=== PATIENT | female | born 1995 | race American Indian/Alaskan Native ===

== ENCOUNTER 2020-09-18 11:22 | Emergency (ER) | payer SELFPAY ==
--- NOTE | 2020-09-18 14:43 | Emergency Department Report ---
ED General Adult HPI - General Chief complaint: Skin/Abscess/Foreign Body Stated complaint: ABCESS Time Seen by Provider: 09/18/20 13:10 Source: patient Mode of arrival: Ambulatory Limitations: No Limitations - History of Present Illness Initial comments: 25-year-old -[place] female patient without past medical history presents with complaints of nodules in her pelvic region x 2 days. She states the nodules are mildly tender to touch and denies any redness, swelling, drainage, fever/chills/sweats, dysuria/hematuria/urinary frequency, or vaginal discharge/dyspareunia. She rates her pain as a 2/10 in severity and describes it as a ache. She does report some vaginal itching and states she applied cornstarch to her vaginal area today via recommendation of her grandmother. She denies any rash. Patient states she is sexually active and has had history of an STI - Related Data Previous Rx's Medication Instructions Recorded Last Taken Type Fluconazole (Nf) [Diflucan TAB] 150 mg PO ONCE 1 Days #1 tablet 09/18/20 Unknown Rx Allergies Allergy/AdvReac Type Severity Reaction Status Date / Time No Known Allergies Allergy Verified 09/18/20 11:23 ED Review of Systems ROS: Stated complaint: ABCESS Other details as noted in HPI Constitutional: denies: chills, diaphoresis, fever, malaise Respiratory: denies: cough, shortness of breath Gastrointestinal: denies: abdominal pain, nausea, vomiting Genitourinary: denies: urgency, dysuria, frequency, hematuria, discharge, abnormal menses, dyspareunia Skin: pruritus. denies: rash, change in color Neurological: denies: headache Hematological/Lymphatic: swollen glands ED Past Medical Hx - Past Medical History Previous Medical History?: No - Surgical History Past Surgical History?: No - Social History Smoking Status: Never Smoker Substance Use Type: None - Medications Home Medications: Home Medications Medication Instructions Recorded Confirmed Last Taken Type Fluconazole (Nf) [Diflucan TAB] 150 mg PO ONCE 1 Days #1 tablet 09/18/20 Unknown Rx ED Physical Exam - General Limitations: No Limitations General appearance: alert, in no apparent distress - Head Head exam: Present: atraumatic, normocephalic - Eye Eye exam: Present: normal appearance. Absent: scleral icterus - Respiratory Respiratory exam: Present: normal lung sounds bilaterally. Absent: respiratory distress - Cardiovascular Cardiovascular Exam: Present: regular rate, normal rhythm - External exam: Present: other (Tenderness to labia minora noted with speculum insertion; mildly tender and swollen lymph node noted to left and right groin). Absent: erythema, swelling, lesions, lacerations Speculum exam: Present: vaginal bleeding (Mild). Absent: erythema, vaginal discharge, cervical discharge Bi-manual exam: Absent: cervical motion tendernes, adnexal tenderness - Neurological Exam Neurological exam: Present: alert, oriented X3 - Psychiatric Psychiatric exam: Present: normal affect, normal mood - Skin Skin exam: Present: warm, dry, intact, rash. Absent: cyanosis, diaphoretic ED Course Vital Signs 09/18/20 11:26 Temperature 98.0 F Pulse Rate 71 Respiratory 16 Rate Blood Pressure 105/64 O2 Sat by Pulse 97 Oximetry ED Medical Decision Making - Medical Decision Making 25-year-old -[place] female patient without past medical history presents with complaints of nodules in her pelvic region x 2 days. She states the nodules are mildly tender to touch and denies any redness, swelling, drainage, fever/chills/sweats, dysuria/hematuria/urinary frequency, or vaginal discharge/dyspareunia. She rates her pain as a 2/10 in severity and describes it as a ache. She does report some vaginal itching and states she applied cornstarch to her vaginal area today via recommendation of her grandmother. She denies any rash. Patient states she is sexually active and has had history of an STI No abdominal tenderness or cervical motion tenderness noted on exam. No vaginal discharge noted. Mildly swollen tender inguinal lymph nodes noted bilaterally. Patient also has irritation of the labia minora along with some tenderness in the area. Will treat for yeast vaginitis with Diflucan. Her vitals are normal, she is well-appearing, she is stable for discharge home with follow-up with PCP. Discussed monitoring of lymphadenopathy and signs and symptoms that should prompt immediate return to the emergency department in detail with patient who verbalized understanding. Critical care attestation.: If time is entered above; I have spent that time in minutes in the direct care of this critically ill patient, excluding procedure time. ED Disposition Clinical Impression: Acute inguinal lymphadenitis, Yeast vaginitis Disposition: TO HOME OR SELFCARE Is pt being admited?: No Condition: Stable Instructions: Vulvovaginal Candidiasis (ED) Prescriptions: Fluconazole (Nf) [Diflucan TAB] 150 mg PO ONCE 1 Days #1 tablet Referrals: PRIMARY CARE,MD [Primary Care Provider] - 3-5 Days
[2020-09-18 14:45] VITALS: BP 105/64
[2020-09-18 16:04] LABS: Amorphous Crystals,Urine Few; Bacteria,Urine 1+ /HPF (Negative); Bilirubin,Urine NEG (Negative); Blood,Urine SM (Negative); Color,Urine Yellow (Yellow); Protein,Urine <15 mg/dL mg/dL (Negative)
[2020-09-18 16:10] LABS: HCG Qualitative,Urine Negative (Negative)
[2020-09-18] MEDS ORDERED: IBUPROFEN 800 MG TAB PO ONE (16:14)
== END 2020-09-18 16:21 | disposition home or self-care (01) ==
LOC: ED 11:22
DX: L04.8 Acute lymphadenitis of other sites (principal); B37.3 Candidiasis of vulva and vagina; Z79.899 Other long term (current) drug therapy
CPT/HCPCS: 81001; 81025; 87210; 87591

== ENCOUNTER 2020-09-22 20:07 | Emergency (ER) | payer SELFPAY ==
[2020-09-22 20:59] VITALS: BP 97/65
[2020-09-22 21:45] LABS: HCG Qualitative,Urine Negative (Negative)
[2020-09-22 21:46] LABS: Bilirubin,Urine NEG (Negative); Blood,Urine NEG (Negative); Color,Urine Yellow (Yellow); Mucus,Urine 2+ /HPF; Protein,Urine <15 mg/dL mg/dL (Negative); Urobilinogen,Urine < 2.0 mg/dL (<2.0)
[2020-09-22] MEDS ORDERED: levoFLOXacin 500 MG TAB PO ONE (23:59)
[2020-09-22] MEDS ORDERED: metroNIDAZOLE 500 MG TAB PO ONE (23:59)
--- NOTE | 2020-09-23 00:20 | Emergency Department Report ---
ED Female HPI - General Chief complaint: Urogenital-Female Stated complaint: VAGINAL IRRITATION/ICHY Time Seen by Provider: 09/22/20 23:35 Source: patient Mode of arrival: Ambulatory Limitations: No Limitations - History of Present Illness Initial comments: Patient is a 25-year-old -[place] female who presents for vaginal itching and rash x4 days, patient was seen and treated for yeast infection in this ED 3-day 4 days ago. Patient states she did take Diflucan p.o. however she went home and use cornstarch as prescribed by her grandmother. Now with itching and irritation. Patient denies vaginal discharge denies concern for STI however she did have STI work-up 4 days ago which was negative. She has permanent long- term partner and has not had contact since visit on the . There is no fever, chills, nausea vomiting, back pain, there is urinary frequency urgency and dysuria. Patient denies hematuria last menstrual cycle ended 4 days ago. MD Complaint: dysuria - Related Data Previous Rx's Medication Instructions Recorded Last Taken Type Fluconazole (Nf) [Diflucan TAB] 150 mg PO ONCE 1 Days #1 tablet 09/18/20 Unknown Rx Ciprofloxacin HCl [Ciprofloxacin 500 mg PO BID 7 Days #17 tab 09/23/20 Unknown Rx TAB] metroNIDAZOLE [metroNIDAZOLE 1 applicatio VG BID 7 Days #1 tube 09/23/20 Unknown Rx VAGINAL 0.75% gel] Allergies Allergy/AdvReac Type Severity Reaction Status Date / Time No Known Allergies Allergy Verified 09/18/20 11:23 ED Review of Systems ROS: Stated complaint: VAGINAL IRRITATION/ICHY Other details as noted in HPI Constitutional: denies: chills, fever Eyes: denies: eye pain, eye discharge, vision change ENT: denies: ear pain, throat pain Respiratory: denies: cough, shortness of breath, wheezing Cardiovascular: denies: chest pain, palpitations Endocrine: no symptoms reported Gastrointestinal: denies: abdominal pain, nausea, diarrhea Genitourinary: urgency, dysuria, frequency. denies: hematuria, discharge Musculoskeletal: denies: back pain, joint swelling, arthralgia Skin: denies: rash, lesions Neurological: denies: headache, weakness, paresthesias Psychiatric: denies: anxiety, depression Hematological/Lymphatic: denies: easy bleeding, easy bruising ED Past Medical Hx - Past Medical History Previous Medical History?: No - Surgical History Past Surgical History?: No - Social History Smoking Status: Never Smoker Substance Use Type: None - Medications Home Medications: Home Medications Medication Instructions Recorded Confirmed Last Taken Type Fluconazole (Nf) [Diflucan TAB] 150 mg PO ONCE 1 Days #1 tablet 09/18/20 Unknown Rx Ciprofloxacin HCl [Ciprofloxacin 500 mg PO BID 7 Days #17 tab 09/23/20 Unknown Rx TAB] metroNIDAZOLE [metroNIDAZOLE 1 applicatio VG BID 7 Days #1 tube 09/23/20 Unknown Rx VAGINAL 0.75% gel] ED Physical Exam - General Limitations: No Limitations General appearance: alert, in no apparent distress - Head Head exam: Present: atraumatic, normocephalic - Eye Eye exam: Present: normal appearance - ENT ENT exam: Present: mucous membranes moist - Neck Neck exam: Present: normal inspection - Respiratory Respiratory exam: Present: normal lung sounds bilaterally. Absent: respiratory distress - Cardiovascular Cardiovascular Exam: Present: regular rate, normal rhythm. Absent: systolic murmur, diastolic murmur, rubs, gallop - GI/Abdominal GI/Abdominal exam: Present: soft, normal bowel sounds. Absent: distended, tenderness, guarding, rebound, rigid, bruit, hernia - Rectal Rectal exam: Present: deferred - External exam: Present: other (exam deferred by patient ) - Extremities Exam Extremities exam: Present: normal inspection, full ROM. Absent: tenderness - Back Exam Back exam: Present: normal inspection, full ROM. Absent: tenderness, CVA tenderness (R), CVA tenderness (L) - Neurological Exam Neurological exam: Present: alert, oriented X3, normal gait - Psychiatric Psychiatric exam: Present: normal affect, normal mood - Skin Skin exam: Present: warm, dry, intact, normal color. Absent: rash ED Course Vital Signs 09/22/20 20:44 Temperature 98.0 F Pulse Rate 60 Respiratory 20 Rate Blood Pressure 97/65 O2 Sat by Pulse 99 Oximetry ED Medical Decision Making - Lab Data Labs 09/22/20 21:00 Urine Color Yellow Urine Turbidity Clear Urine pH 6.0 Ur Specific [place] 1.019 Urine Protein <15 mg/dl Urine Glucose (UA) Neg Urine Ketones Neg Urine Blood Neg Urine Nitrite Neg Ur Reducing Substances Not Reportable Urine Bilirubin Neg Urine Ictotest Not Reportable Urine Urobilinogen < 2.0 Ur Leukocyte Esterase Lg Urine WBC (Auto) 80.0 H Urine RBC (Auto) 7.0 U Epithel Cells (Auto) 2.0 Urine Mucus 2+ Urine HCG, Qual Negative - Medical Decision Making this is UTI , Vaginitis, plan: Cipro, metrodenazole gel , pt will follow up with [facility] in 2-3 days, pt verbalized agreement and understanding of discharge plan. Critical care attestation.: If time is entered above; I have spent that time in minutes in the direct care of this critically ill patient, excluding procedure time. ED Disposition Clinical Impression: UTI (urinary tract infection) Qualifiers: Urinary tract infection type: acute cystitis Hematuria presence: without hematuria Qualified Code(s): N30.00 - Acute cystitis without hematuria Vaginitis Qualifiers: Chronicity: acute Qualified Code(s): N76.0 - Acute vaginitis Disposition: TO HOME OR SELFCARE Is pt being admited?: No Does the pt Need Aspirin: No Condition: Stable Instructions: Urinary Tract Infection in Women (ED), Vaginitis (ED) Prescriptions: Ciprofloxacin HCl [Ciprofloxacin TAB] 500 mg PO BID 7 Days #17 tab metroNIDAZOLE [metroNIDAZOLE VAGINAL 0.75% gel] 1 applicatio VG BID 7 Days #1 tube Referrals: CHACHA BENJAMIN MD [Staff Physician] - 3-5 Days Forms: Work/School Release Form(ED) Time of Disposition: 00:23
== END 2020-09-23 00:33 | disposition home or self-care (01) ==
LOC: ED 20:07
DX: N76.0 Acute vaginitis (principal); N39.0 Urinary tract infection, site not specified
CPT/HCPCS: 81001; 81025; 87086; 99283